=== PATIENT | male | born 1980 | race Caucasian/White ===

== ENCOUNTER 2025-07-08 11:33 | Emergency (ER) | payer MEDICAID ==
[~2025-07-08] VITALS: Ht 172.7 cm; Wt 82.0 kg
[2025-07-08 11:51] VITALS: O2SAT 98
[2025-07-08] MEDS: FLUORESCEIN SODIUM 1MG/STRIP LEFTEYE ONE (12:04)
[2025-07-08] MEDS: TETRACAINE 0.5% OPHTH DROPS 4ML BOTHEYE ONE (12:04)
[2025-07-08] MEDS ORDERED: OCUFLX LEFTEYE (12:42)
[2025-07-08] MEDS ORDERED: IBUP-2437 MT (12:42)
[2025-07-08 12:52] VITALS: BP 114/70; PULSE 60; RESP 18; TEMP 36.8; O2SAT 98
== END 2025-07-08 15:01 | disposition home or self-care (01) ==
LOC: ER 11:33
DX: S05.02XA Injury of conjunctiva and corneal abrasion without foreign body, left eye, initial encounter (principal); Z79.899 Other long term (current) drug therapy; X58.XXXA Exposure to other specified factors, initial encounter; Y93.89 Activity, other specified; Y92.89 Other specified places as the place of occurrence of the external cause; Y99.8 Other external cause status
CPT/HCPCS: 99283